=== PATIENT | female | born 1970 | race Caucasian/White ===

== ENCOUNTER 2023-08-13 15:12 | Emergency (ER) | payer OTHER, SELFPAY ==
[2023-08-13] VITALS (23 sets, daily range): BP systolic 122–269; BP diastolic 87–131; PULSE 79–117; RESP 11–19; TEMP 37.6; O2SAT 95–99; BMI 29.2
--- NOTE | 2023-08-13 15:25 | ECG_ITS ---
[facility] Test Date: 2023-08-13 Pat Name: Toribio Salcedo Department: Room: - Gender: Female [employer]ist: : 1970 Requested By: GONZALEZ ADAMS Order Number: [id number] Reading MD: CESAR BEAVERS Measurements Intervals [place] Rate: 106 P: 43 HI: 160 QRS: 41 QRSD: 82 T: 63 QT: 346 QTc: 408 Interpretive Statements 1120 Sinus tachycardia 9140 abnormal rhythm ECG No previous ECG available for comparison Electronically Signed On 08-14-2023 7:04:03 EDT by CESAR BEAVERS
--- NOTE | 2023-08-13 15:26 | ED.GENADUL1 ---
HPI - General Adult General Chief complaint: Recheck/Abnormal Lab/Rx Stated complaint: HYPERTENSION Time Seen by Provider: 08/13/23 15:15 Source: patient Mode of arrival: walk-in Limitations: no limitations History of Present Illness HPI narrative: 52-year-old female presents for elevated blood pressure. She went to see an eye doctor last week and it was high. The last time she had it checked was about twenty-one years ago. She went to a pharmacy today and checked it here and it was high and she came here. She has no symptoms. No headache dizziness chest pain or shortness of breath. Related Data Home Medications Medication Instructions Recorded Confirmed ascorbic acid (vitamin C) 1,000 mg 1 g PO .EVERY OTHER DAY 08/13/23 08/13/23 capsule multivitamin (Daily Multi-Vitamin 1 tab PO DAILY 08/13/23 08/13/23 tablet) Previous Rx's Medication Instructions Recorded amlodipine 5 mg tablet (Norvasc) 5 mg PO DAILY #30 tabs 08/13/23 Allergies Allergy/AdvReac Type Severity Reaction Status Date / Time No Known Drug Allergies Allergy Verified 08/13/23 15:15 Review of Systems ROS Narrative A ten point review of systems is negative except as noted above. PFSH PFSH Social History Smoking status: Former smoker Exam Narrative Exam Narrative: Nurses note and vital signs reviewed and patient is not hypoxic. General: The patient appears well and in no apparent distress. Patient is resting comfortably on cart. Skin: Warm, dry, no pallor noted. There is no rash noted. Head: Normocephalic, atraumatic Eye: Normal conjunctiva, no drainage Ears, Nose, Mouth, and Throat: oral mucosa is moist. Nares patent. Cardiovascular: Regular Rate and Rhythm Respiratory: Patient is in no distress, no accessory muscle use, lungs are clear to auscultation, no wheezing, rales or rhonchi Back: non-tender GI: soft and nontender Musculoskeletal: The patient has no evidence of calf tenderness, no pitting edema, symmetrical pulses noted bilaterally Neurological: A&O, normal speech Psychiatric: Cooperative Constitutional Vital Signs, click to edit/add: Last Vital Signs Temp 99.7 F 08/13/23 15:15 Pulse 79 08/13/23 17:00 Resp 15 08/13/23 17:00 BP 172/106 H 08/13/23 17:35 Pulse Ox 97 10/31/23 17:00 O2 Del Method Room Air 08/13/23 15:15 Course Vital Signs Vital signs: Vital Signs Temperature 99.7 F 08/13/23 15:15 Pulse Rate 117 H 08/13/23 15:15 Respiratory Rate 16 08/13/23 15:15 Blood Pressure 269/131 H 08/13/23 15:15 Pulse Oximetry 99 08/13/23 15:15 Oxygen Delivery Method Room Air 08/13/23 15:15 Temperature 99.7 F 08/13/23 15:15 Pulse Rate 79 08/13/23 17:00 Respiratory Rate 15 08/13/23 17:00 Blood Pressure 172/106 H 08/13/23 17:35 Pulse Oximetry 97 08/13/23 17:00 Oxygen Delivery Method Room Air 08/13/23 15:15 Medical Decision Making MDM Narrative Medical decision making narrative: the patient presented with asymptomatic hypertension. Blood work is negative. She was given IV labetalol and then hydralazine and her blood pressure has come down. She'll be prescribed Norvasc and has a PCP in mind and she is in the process of making an appointment. Treatment diagnosis and follow-up were discussed with the patient. Differential Diagnosis Differential Diagnosis: essential hypertension, acute kidney injury Lab Data Lab results reviewed: Yes I reviewed the patient's lab results Labs: Lab Results 08/13/23 Range/Units 15:30 WBC 10.6 (4.0-11.0) 10^3/uL RBC 4.34 (4.20-5.40) 10^6/uL Hgb 13.5 (12.0-16.0) g/dL Hct 40.8 (36.0-48.0) % MCV 94.0 (81.0-99.0) fL MCH 31.1 (26.7-34.0) pg MCHC 33.1 (29.9-35.2) g/dL RDW 13.0 (11.0-15.0) % Plt Count 326 (150-450) 10^3/uL MPV 8.7 L (9.5-13.5) fL Neut % (Auto) 69.9 (43.0-75.0) % Lymph % (Auto) 18.1 L (20.5-60.0) % [place] % (Auto) 10.2 (1.7-12.0) % Eos % (Auto) 0.9 (0.9-7.0) % Baso % (Auto) 0.8 (0.2-2.0) % Neut # (Auto) 7.4 H (1.4-6.5) 10^3/uL Lymph # (Auto) 1.9 (1.2-3.8) 10^3/uL [place] # (Auto) 1.1 H (0.3-0.8) 10^3/uL Eos # (Auto) 0.1 (0.0-0.7) 10^3/uL Baso # (Auto) 0.1 (0.0-0.1) 10^3/uL Abs Immat Gran (auto) 0.01 (0.00-0.03) 10^3/uL Imm/Tot Granulo (auto) 0.1 (0.0-0.5) % Sodium 137 (136-145) mmol/L Potassium 3.7 (3.5-5.1) mmol/L Chloride 101 (98-107) mmol/L Carbon Dioxide 27.4 (21.0-32.0) mmol/L Anion Gap 12.3 BUN 13.0 (7.0-18.0) mg/dL Creatinine 0.81 (0.55-1.02) mg/dL Est GFR ( Amer) >60 (>=60) Est GFR (Non-Af Amer) >60 (>=60) BUN/Creatinine Ratio 16.0 Glucose 112 H (74-106) mg/dL Calcium 8.9 (8.5-10.1) mg/dL Imaging Data Chest x-ray: Radiologist's impression: Procedure: XR chest 1V Chest x-ray, 08/13/2023. HISTORY: Hypertension. Shortness of breath. COMPARISON: None. FINDINGS: Single view of the chest obtained. Heart size and mediastinal contours are normal. No pleural effusion. Lungs clear. No pneumothorax. No evidence of pneumonia or pulmonary edema. IMPRESSION: Lungs are clear. No acute findings. Electronically authenticated by: BEA DURAN Date: 08/13/2023 16:09 ECG Data Attestation: I personally reviewed and interpreted this ECG as follows: (EKG on my interpretation shows no acute findings) Critical Care Time Critical Care Time Critical Care Time: Yes Total Critical Care Time: 35 Attestation: Due to the high probability of sudden and clinically significant deterioration in the patient's condition he/she required the highest level of my preparedness to intervene urgently I provided critical care time including documentation time, medication orders and management, reevaluation, vital sign assessment, ordering and reviewing of lab tests, ordering and reviewing of x-ray studies, and admission orders. Aggregate critical care time is 35 minutes including only time during which I was engaged in work directly related to his/her care and did not include time spent treating other patients simultaneously. Discharge Plan Discharge Chief Complaint: Recheck/Abnormal Lab/Rx Clinical Impression: Essential hypertension Patient Disposition: Home, Self-Care Time of Disposition Decision: 17:51 Condition: Good Mode of Transportation: Private Vehicle Prescriptions / Home Meds: New amlodipine [Norvasc] 5 mg tablet 5 mg PO DAILY Qty: 30 0RF No Action multivitamin [Daily Multi-Vitamin] Tablet 1 tab PO DAILY ascorbic acid (vitamin C) 1,000 mg capsule 1 g PO .EVERY OTHER DAY Instructions: Hypertension (ED) Additional Instructions: Follow-up with Dr. Kamara Stand Alone Forms: Portal Instructions Referrals: Physician,Non-Staff, MD [Primary Care Provider] - 1 week
[2023-08-13 15:39] LABS: Basophils Absolute Auto 0.1 10^3/uL (0.0-0.1); Basophils Percent Auto 0.8 % (0.2-2.0); Eosinophils Absolute Auto 0.1 10^3/uL (0.0-0.7); Eosinophils Percent Auto 0.9 % (0.9-7.0); Hematocrit 40.8 % (36.0-48.0); Hemoglobin 13.5 g/dL (12.0-16.0); Immature Granulocytes Abs Auto 0.01 10^3/uL (0.00-0.03); Immature Granulocytes Pct Auto 0.1 % (0.0-0.5); Lymphocytes Absolute Auto 1.9 10^3/uL (1.2-3.8); Lymphocytes Percent Auto 18.1 % (20.5-60.0); Mean Corpuscular HGB Conc 33.1 g/dL (29.9-35.2); Mean Corpuscular Hemoglobin 31.1 pg (26.7-34.0); Mean Platelet Volume 8.7 fL (9.5-13.5); Monocytes Absolute Auto 1.1 10^3/uL (0.3-0.8); Monocytes Percent Auto 10.2 % (1.7-12.0); Neutrophils Absolute Auto 7.4 10^3/uL (1.4-6.5); Neutrophils Percent Auto 69.9 % (43.0-75.0); Platelet Count 326 10^3/uL (150-450); Red Blood Count 4.34 10^6/uL (4.20-5.40); White Blood Count 10.6 10^3/uL (4.0-11.0)
--- NOTE | 2023-08-13 15:45 | XR_ITS ---
The [address] [address] Patient Name: ISAIAH SINGH MRN: [id number] date: 1970 Sex: F Assigned Patient Location: ER Current Patient Location: ED.MAIN Accession/Order Number: [id number] Exam Date: 08/13/2023 15:40 Report Date: 08/13/2023 16:09 At the request of: JOSE PASTOR Procedure: XR chest 1V Chest x-ray, 08/13/2023. HISTORY: Hypertension. Shortness of breath. COMPARISON: None. FINDINGS: Single view of the chest obtained. Heart size and mediastinal contours are normal. No pleural effusion. Lungs clear. No pneumothorax. No evidence of pneumonia or pulmonary edema. XR/XR chest 1V IMPRESSION: Lungs are clear. No acute findings. Electronically authenticated by: BEA DURAN Date: 08/13/2023 16:09
[2023-08-13] MEDS: LABETALOL HCL 20 MG/4 ML SYRINGE 10 MG IVP ×2 (15:46→16:51)
[2023-08-13 15:54] LABS: Anion Gap 12.3; Calcium 8.9 mg/dL (8.5-10.1); Carbon Dioxide 27.4 mmol/L (21.0-32.0); Chloride 101 mmol/L (98-107); Estimated GFR (African America >60 (>=60); Estimated GFR (Non-African Ame >60 (>=60); Glucose 112 mg/dL (74-106); Potassium 3.7 mmol/L (3.5-5.1); Sodium 137 mmol/L (136-145)
[2023-08-13] MEDS: HYDRALAZINE HCL 20 MG/ML VIAL IVP (17:35)
== END 2023-08-13 18:05 | disposition home or self-care (01) ==
PROVIDERS: Emergency Provider Emergency Medicine; Family Provider Internal Medicine
DX: I10 Essential (primary) hypertension (principal); Z87.891 Personal history of nicotine dependence
CPT/HCPCS: 36415; 71045; 80048; 85025; 93005; 96374; 96375; 96376; 99285